=== PATIENT | male | born 1970 | race Caucasian/White ===

== ENCOUNTER 2016-09-02 02:12 | Inpatient (IN) | payer OTHER ==
[~2016-09-02] VITALS: Ht 165.1 cm; Wt 98.4 kg
[~2016-09-02 02:12] MED LIST: HUMALOG100 UNIT/2; LIPITOR20 M2 PO; NEXIUM40 M1 PO; TOPROL XL100 M1 PO; TOUJEO SOL300 UNIT/1 SC; TRIBENZOR 40-11 EAC1 PO; ZYRTEC10 M3 PO
--- NOTE | 2016-09-02 13:05 | Admission Core Measures ---
Admission Meds I reviewed the following Meds: Current Medications Sig/Nannette Start time Last Medication Dose Stop Time Status Admin Cefazolin Sodium 2,000 MG ONCE 09/02 0000 NR (Kefzol-Ancef Inj) 09/02 2358 Heparin Sodium 5,000 UNIT ONCE 09/02 0000 NR (Porcine) 09/02 2358 Acute Coronary Syndrome Inclusion Criteria ACS Diagnosis No Inpatient Core Measures LDL Reminder: If No, please order W/I first 24hr of stay Congestive Heart Failure Inclusion Criteria CHF Diagnosis No Cerebrovascular accident Inclusion Criteria CVA/TIA Diagnosis No Inpatient Core Measures Bedside Swallow Eval Reminder: If BSE failed, place ST order Antithrombotic Reminder: Order Antithrombotic Medication by end of day 2 Antithrombotic Reminder: Document Reason Antithrombotic Not ordered by end of day 2 AFIB/Flutter Reminder: If Present, add to problem list AFIB/Flutter Reminder: Order Anticoag Medication for pts with AFIB/Flutter Atherosclerosis Reminder: If Present, add to problem list LDL Reminder: If No, please order W/I first 24hr of stay PT Order Reminder: If No, please order Venous thromboembolism Inpatient Core Measures VTE Risk Factors: Age > 40, Obesity, Surgery No [facility] VTE prophylaxis d/t No contraindications No VTE Pharm Prophylaxis d/t No contraindications Inclusion Criteria - Per Current guidelines, there needs to be overlap - treatment for the first 5 days of Warfarin therapy. - Parenteral Anticoagulation (IV or SC) needs to be - given along with Warfarin therapy. VTE Diagnosis No VTE Type NONE VTE Confirmed by (Test) NONE Problem List As ranked by this Provider includes Assessment & Plan 1. S/P gastric bypass HOME MEDS Home Med List Atorvastatin Calcium (Lipitor) 20 MG TABLET 1 TAB PO DAILY CHOLESTEROL ( Reported) Cetirizine HCl (Zyrtec) 10 MG TABLET 1 TAB PO DAILY ALLERGIES (Reported) Esomeprazole (Nexium) 40 MG CAPSULE.DR 1 CAP PO DAILY GERD (Reported) Insulin Glargine,Hum.rec.anlog (Toujeo Solostar) 300 UNIT/ML (1.5 ML) INSULN.PEN 80 UNITS SC NIGHTLY DM I (Reported) Metoprolol Succ XL (Toprol XL) 100 MG TAB.ER.24H 1 TAB PO DAILY HTN (Reported ) Olmesartan/Amlodipin/Hcthiazid (Tribenzor 40-10-25 MG Tablet) 40 MG-10 MG-25 MG TABLET 1 TAB PO DAILY HTN (Reported)
--- NOTE | 2016-09-02 13:14 | Operative Report ---
Operative/Inv Procedure Report Surgery Date: 09/02/16 Name of Procedure: Laparoscopic Gastric Bypass, Laparoscopic partial gastrectomy, Laparoscopic Cholecystectomy, Upper endoscopy Pre-Operative Diagnosis: Morbid Obesity BMI, 39, HTN, NAVI, DM, GERD, Cholelithiasis Post-Operative Diagnosis: Morbid Obesity BMI 39, HTN, NAVI, DM, GERD, Cholelithiasis, gastric mass Estimated Blood Loss: less than 50ml Surgeon/Crystal Flat Grinder: NARCISO ELIZABETH DO Anesthesia: general endotracheal tube IV Fluids: 2500 cc Drains: 10 Fr RUQ TOBIAS Drain Specimens: Wedge resection of stomach, gallbladder Complications: None Condition: Stable Operative Indication: This is a 45-year-old male that presented to the office for workup for bariatric surgery. After appropriate workup was completed we discussed with the patient the band, the sleeve, and the gastric bypass. The patient chose to undergo a gastric bypass. All risks including but not limited to bleeding, infection, leak, stricture, marginal ulcer, injury to surrounding bowel/esophagus/stomach/ liver/spleen, malabsorption/malnutrition, dumping syndrome, internal hernia/ small bowel obstruction, DVT/PE, and mortality of 05/999 patients were discussed in detail. Patient was also found to have gallstones on his preoperative ultrasound and chose to undergo a laparoscopic cholecystectomy at the time of the gastric bypass. All risks of bleeding, infection, bile leak, and injury to surrounding duct/bowel were discussed in detail. The patient understood everything mentioned above and decided to proceed. Operative/Procedure Note Note: The patient was brought to the operating room and placed on the table in supine position. Venodyne stockings were placed and adequate general endotracheal anesthesia was obtained. The patient was prepped and draped in standard surgical fashion. Began the procedure by making a 2 cm transverse incision supraumbilically and slightly to the left of the midline. Then using a 12 mm clear Visiport and a 10 mm 0 laparoscope the abdominal cavity was accessed. Great care was taken to go through the anterior rectus sheath, the posterior rectus sheath, and through the peritoneum. Once we entered the peritoneum the abdominal cavity was insufflated to 15 mmHg. Upon initial examination no obvious gross pathology was seen, a distended gallbladder was noted in the right upper quadrant. Accessory trocars were placed, 5 mm in the epigastrium for the Marium liver retractor. The liver retractor was inserted and the liver was retracted anteriorly exposing the hiatus, no obvious hiatal hernia was seen. 5 mm ports were placed in the right and left upper quadrant, 5 mm left lateral port, and a 12 mm right lateral port. Began the procedure by mobilizing the angle of His and the left navarro of the diaphragm. The stomach was retracted towards the feet and the peritoneum was lysed until the left navarro was clearly visualized. We then brought our attention to the lesser curvature, and at the second vessel I began accessing the retrogastric space. Was done using Harmonic scalpel maintaining hemostasis. Once the retrogastric space was accessed we began creating our pouch using 60 mm purple staple load 4. The pouch was created around an Ashtyn tube. Once the pouch was completely disconnected from the gastric remnant we examined the staple lines, some bleeding was noted and that was controlled using endoclips. A less than 1 cm mass was noted on the anterior surface of the gastric fundus of the gastric remnant. Using 60 mm purple KIRT staple loads a wedge resection was performed to excise this mass. Once the mass was excised it was removed from the abdominal cavity and handed off the field. We then brought our attention to the small bowel, the omentum was retracted above the transverse colon and the ligament of Treitz was identified. The small bowel was run 50 cm and divided using 60 mm buchanan staple load. 2 clips were placed on the proximal staple line which was the biliopancreatic limb. That limb was run to the ligament of Treitz to assure that that was the blind limb. Following this the omentum was divided using Harmonic scalpel. After the omentum was divided the small bowel was coming up to the gastric pouch with no tension. At that point an enterotomy was made 5 cm from the prior divided distal staple line, fdc between the mesenteric and antimesenteric part. A gastrotomy was made pasterior to the staple line. A side to side gastrojejunostomy was created using 45 mm purple staple load approximately 3-3-1/2 cm in diameter. The Ashtyn tube was passed through the common enterotomy, and the common enterotomy was closed using 2-0 Vicryl suture in a running fashion double layer. Following this the small bowel was clamped off distal to the anastomosis, and we preformed an air and a methylene blue leak test. No obvious leak was noted. All the methylene blue was suctioned out. The small bowel was then run 100 cm and an enterotomy was made on the antimesenteric side. Another enterotomy was made on the antimesenteric side of the biliopancreatic limb. A side to side functional end end jejunojejunostomy was created using 60 mm buchanan staple load. The common enterotomy was closed using a 60 mm buchanan staple load followed by a 45 mm buchanan staple load. Some bleeding was noted from the staple line and that was controlled using endoclips as well. The mesenteric defect was closed using 2-0 Tycron suture in a running fashion. At that point we examined both anastomoses no obvious bleeding was noted and both appeared intact. 2-0 Vicryl suture was placed at the distal angle of the gastrojejunostomy to take some tension off the anastomosis. And a 2-0 Vicryl suture was placed on the anterior surface of the gastrojejunostomy imbricating the staple line. At that point an upper endoscopy was performed to assure patency of the anastomosis and make sure no obvious bleeding was noted as the patient was very oozy throughout the case. An endoscope was passed through the mouth down into the posterior pharynx and into the esophagus. The esophagus was entered under direct visualization and passed all the way down to the gastric pouch. The anastomosis and the pouch were examined no obvious bleeding was noted and the anastomosis appeared widely patent. At that point the endoscope was removed under direct visualization desufflating on the way out. A 5 mm port was placed in the right lateral position. The gallbladder was grasped with the lateralmost trocar and retracted up over the liver. Using the other 2 accessory trocars the infundibulum was grasped and the peritoneum was lysed using blunt dissection and using hook electrocautery. The cystic duct and cystic artery were visualized. The common bile duct was visualized and it was away from our area of dissection. The cystic duct and artery were skeletonized and divided, 3 clips to stay and one clip on the gallbladder side for the duct and the artery was divided using harmonic scalpel. The gallbladder was dissected off the liver bed using harmonic scalpel maintaining hemostasis. Prior to completely removing the gallbladder off the liver bed we examined the area of dissection no obvious bile leak or bleeding was noted, the clips appeared to be in good position. The gallbladder was completely detached from the liver bed. 10 mm Endobag was introduced through the periumbilical trocar site. The gallbladder was placed in the bag and removed through the umbilicus. The abdomen was reinsufflated. No obvious bile leak or bleeding was noted. The right upper quadrant was irrigated until clear. A 10 Malay TOBIAS drain was placed through the right upper quadrant incision under the liver and over the spleen. All ports were removed under direct visualization, no obvious bleeding was noted. Skin was closed using 4-0 Monocryl. Steri-Strips and dressings were placed. The patient was successfully extubated and transferred to the recovery room in stable condition. The patient tolerated the procedure well with no complications. Findings: no hiatal hernia, 100 cm alimentary limb, cholelithiasis, <1cm gastric mass on anterior portion of fundus CC: LINDSAY NICHOLSON DO
[2016-09-02 15:00] VITALS: BP 140/78
--- NOTE | 2016-09-02 15:38 | PN- Bariatrics ---
Subjective Subjective: The patient was seen this afternoon postoperatively. He complains of some expected epigastric discomfort for which the current pain regiment is helpful. He also complains of a dry sore throat. He has no other complaints the current time and denies any chest pain, difficulty breathing, or nausea. Objective Vital Signs and I&Os Vital signs: Blood pressure 140/70, pulse 90, temperature 97.3, O2 saturations 95% on 2 L via nasal cannula I's and O's: 2500 ML's of lactated Ringer's/patient is due to void/TOBIAS 150 ML/EBL 100 Physical Exam: Gen.: Alert and in no obvious distress Skin: Warm and dry Cardiac: S1 and S2 regular Pulmonary: Bilateral breath sounds are equal and decreased at bases Abdomen: Soft, obese, appropriate incisional tenderness, bowel sounds sluggish. Port sites are clean, dry, and intact. His TOBIAS 10 point on suction with serosanguineous drainage in the bulb. Extremities: Bilateral lower extremities warm without calf tenderness or significant edema. Assessment/Plan Assessment/Plan Assessment: 45-year-old male status post laparoscopic gastric bypass, cholecystectomy, and partial gastrectomy. Postoperatively the patient is progressing as expected and his pain is under adequate control. Plan: Keep nothing by mouth for an upper GI series in the morning IV hydration PRN pain medications and antiemetics. Out of bed and ambulate Total respiratory care for incentive spirometry and CPAP GI and DVT prophylaxis Follow-up morning laboratory studies Lovenox education Tight glycemic control and insulin sliding scale Changed home beta brigitte extended release to twice a day dosing with non- extended release 2 doses of postoperative prophylactic antibiotics Core Measures/Miscellaneous Venous Thromboembolism VTE Risk Factors: Age > 40, Obesity, Surgery VTE Contraindications: No Contraindications VTE Diagnosis: No VTE Type: NONE VTE Confirmed by (Test): NONE Beta Brigitte Is Beta Brigitte a Home Med? Yes If Yes, Was This Ordered Today? Yes Antibiotics Is Patient on Antibiotics? Yes If Yes: prophylaxis
[2016-09-02 16:04] VITALS: BP 100/72
[2016-09-02] MEDS ORDERED: LOPRESSOR50 M1 PO (16:44)
[2016-09-02] MEDS ORDERED: HYCET 7.5 MG-3473 ML PO (16:45)
[2016-09-02] MEDS ORDERED: LOVENOX40 MG/0.1 SC (16:46)
--- NOTE | 2016-09-02 16:52 | Patient Discharge Instructions ---
Discharge Instructions General Discharge Information You were seen/treated for: Morbid obesity You had these procedures: Laparoscopic gastric bypass, cholecystectomy, and partial gastrectomy Watch for these problems: Significantly increased pain, nausea, temperature over 101 Increased redness or draining from around incisions Chest pain, difficulty breathing or lower leg pain No bath, but you may shower: Yes Other wound care: Remove dressings when he gets home leaving white strips intact until seen by your surgeon Special Instructions: See preprinted information booklet Ambulate frequently May use Gas-X for gas pain Diet Recommended Diet: Bariatric Activity Activity Self Limited: Yes Pounds, do NOT lift more than: 10 Acute Coronary Syndrome Inclusion Criteria At DC or during hospital stay patient has or had the following: ACS DIAGNOSIS No Discharge Core Measures Meds if any: Prescribed or Continued at Discharge Meds if any: NOT Prescribed or Continued at Discharge Congestive Heart Failure Inclusion Criteria At DC or during hospital stay patient has or had the following: CHF DIAGNOSIS No Discharge Core Measures Meds if any: Prescribed or Continued at Discharge Meds if any: NOT Prescribed or Continued at Discharge Cerebrovascular accident Inclusion Criteria At DC or during hospital stay patient has or had the following: CVA/TIA Diagnosis No Discharge Core Measures Meds if any: Prescribed or Continued at Discharge Meds if any: NOT Prescribed or Continued at Discharge Venous thromboembolism Inclusion Criteria VTE Diagnosis No VTE Type NONE VTE Confirmed by (Test) NONE Discharge Core Measures - Per Current guidelines, there needs to be overlap - treatment for the first 5 days of Warfarin therapy. - If discharged on Warfarin prior to 5 days of - overlap therapy, the patient will need to be - assessed for post discharge needs including - *Post discharge parental anticoagulation - *Warfarin and/or parental anticoagulation education - *Follow up date to check INR post discharge At least 5 days overlap therapy as Inpatient No Meds if any: Prescribed or Continued at Discharge Note: Overlap Therapy is Warfarin and Anticoagulant Meds if any: NOT Prescribed or Continued at Discharge
--- NOTE | 2016-09-02 16:55 | Surg Short-stay <48hrs Dis Sum ---
Visit Information Visit Dates Admission Date: 09/02/16 Discharge Date: 09/04/16 Surgical Short Stay DC Summary Admission Diagnosis: Morbid obesity hx iddm, htn, gerd, geetha Final Diagnosis: Same Procedure(s): Laparoscopic gastric bypass, cholecystectomy, partial gastrectomy with intraoperative endoscopy Summary/Significant Findings: The patient was admitted on 09/02/2016. He is brought to the operating theater where he underwent the above procedure. His upper gi study was negative on post -op day#1. Postoperatively the patient progressed as expected, his pain is under adequate control, and he tolerated a stage I diet without nausea. His beta daquan was divided, and continued post-op. He was seen by for evaluation and recommendations of his insulin control for diabetes. The patient was discharged with an uneventful hospital course. Condition at Discharge: Stable Discharge Disposition: home or self care Discharge instructions provided to patient/family: Yes Post discharge follow-up plan: Call the office to be seen in one week endocrine follow-up as instructed
[2016-09-02 17:32] VITALS: BP 136/82
[2016-09-02 20:05] VITALS: BP 110/70
[2016-09-02 23:12] VITALS: BP 118/64
[2016-09-03 06:39] VITALS: BP 118/80
--- NOTE | 2016-09-03 07:13 | PN- Bariatrics ---
Subjective Subjective: The patient was seen this morning postoperatively day #1. He reports some expected epigastric discomfort but is otherwise okay. He denies any nausea, chest pain, or difficulty breathing. He is ambulating frequently and has no other complaints the current time Objective Vital Signs and I&Os Vital Signs Date Time Temp Pulse Resp B/P B/P Pulse O2 O2 Flow FiO2 Mean Ox Delivery Rate 09/03 0639 98.3 88 20 118/80 94 Room Air 09/03 0000 CPAP 09/02 2312 97.9 86 20 118/64 92 Room Air 09/02 2200 96 Nasal 2.0L Cannula 09/02 2004 98.0 93 20 110/70 96 Nasal 2.0L Cannula 09/03 1999 96 Nasal 2.0L Cannula 09/02 1854 Nasal 2.0L Cannula 09/02 1732 98.3 96 20 136/82 96 Nasal 2.0L Cannula 09/02 1604 97.6 67 19 100/72 93 09/02 1600 97 Nasal 3.0L Cannula 09/02 1600 97 Nasal 3.0L Cannula 09/02 1500 97 Nasal 3.0L Cannula 09/02 1500 98.0 69 18 140/78 95 Nasal 3.0L Cannula Intake & Output 09/03 0800 09/03 0000 09/02 1600 09/02 0800 09/02 0000 09/01 1600 Intake Total 250 Output Total 158 Balance 92 Intake, IV 250 Output, 33 Drainage Output, Urine 125 Patient 217 lb Weight Weight Reported by Patient Measurement Method Physical Exam: Gen.: Alert and in no obvious distress Skin: Warm and dry Abdomen: Soft, obese, appropriate incisional tenderness, bowel sounds positive. Port sites are slightly bloody but otherwise intact. There is a TOBIAS 1 holding suction with serosanguineous drainage in the bulb. Extremities: Bilateral lower extremitys are warm without calf tenderness or significant edema. Assessment/Plan Assessment/Plan Assessment: 45-year-old male status post laparoscopic gastric bypass, cholecystectomy, and partial gastrectomy postoperative day #1. The patient is progressing as expected, his pain is under adequate control, and he is without nausea. Plan: Keep nothing by mouth for upper GI series this morning. His upper GI series is okay the patient be started on a bariatric stage I diet Out of bed and ambulate Follow-up morning laboratory studies GI and DVT prophylaxis Decrease IV fluids Continue current pain regiment Lovenox education Keep TOBIAS to self suction Core Measures/Miscellaneous Venous Thromboembolism VTE Risk Factors: Age > 40, Obesity, Surgery VTE Contraindications: No Contraindications VTE Diagnosis: No VTE Type: NONE VTE Confirmed by (Test): NONE Beta Brigitte Is Beta Brigitte a Home Med? Yes If Yes, Was This Ordered Today? Yes Antibiotics Is Patient on Antibiotics? No
[2016-09-03 08:47] LABS: ABSOLUTE BASOPHIL COUNT 0 /CUMM (0.0-0.2); ABSOLUTE EOSINOPHIL COUNT 0 /CUMM (0.0-0.7); ABSOLUTE GRANULOCYTE CT 10.2 /CUMM (1.4-6.5); ABSOLUTE LYMPH COUNT 1.1 /CUMM (1.2-3.4); ABSOLUTE MONOCYTE COUNT 0.9 /CUMM (0.10-0.60); BASOPHIL % 0.1 % (0.0-2.0); EOSINOPHIL % 0.1 % (0-5); HEMATOCRIT 38.5 % (42-52); MEAN CORPUSCULAR HGB CONC 34.2 G/DL (33.0-37.0); MEAN CORPUSCULAR VOLUME 87.8 FL (80.0-94.0); MEAN PLATELET VOLUME 7.3 FL (7.4-10.4); PLATELET COUNT 258 /CUMM (130-400); RBC DISTRIBUTION WIDTH 13.8 % (11.5-14.5); RED BLOOD CELL CT 4.39 /CUMM (4.70-6.10); WHITE BLOOD CELL COUNT 12.3 /CUMM (4.8-10.8)
[2016-09-03 10:03] LABS: GRANULOCYTE % 83.4 % (42.2-75.2)
--- NOTE | 2016-09-03 12:21 | Cons- Endocrinology ---
General Information and HPI Consulting Request Date of Consult: 09/03/16 Requested By: surgical team Reason for Consult: Elevated blood sugar post gastric bypass surgery Source of Information: patient, old records Exam Limitations: no limitations History of Present Illness: This 45-year-old male who is status post laparoscopic gastric bypass, cholecystectomy, and partial gastrectomy which was performed yesterday. In speaking with the patient he has a long-standing history of diabetes mellitus type 2. He was on large doses of insulin including Toujeo 80 units twice a day as well as 10-15 units of Humalog before each meal. Even with that his sugars were running high. He was not recently on a metformin or other medications Interestingly when the patient was on his preop diet and his blood sugar up down into the 140s even though he was taking no insulin at all. Patient states that he is doing well postoperatively. He had the upper GI series this morning to make sure there were no lesions and he has been started on his liquid diet she's bariatric stage I. He is still on some IV fluids with D5 half-normal saline. His most recent blood sugar was 164 though yesterday his sugars are in the mid 200s by fingerstick. He is on low-dose regular insulin coverage every 6 hours. Allergies/Medications Allergies: Coded Allergies: shellfish derived (Severe, HIVES 08/25/16) Home Med List: Atorvastatin Calcium (Lipitor) 20 MG TABLET 1 TAB PO DAILY CHOLESTEROL ( Reported) Cetirizine HCl (Zyrtec) 10 MG TABLET 1 TAB PO DAILY ALLERGIES (Reported) Esomeprazole (Nexium) 40 MG CAPSULE.DR 1 CAP PO DAILY GERD (Reported) Insulin Glargine,Hum.rec.anlog (Toujeo Solostar) 300 UNIT/ML (1.5 ML) INSULN.PEN 80 UNITS SC NIGHTLY DM I (Reported) Insulin Lispro (Humalog) 100 UNIT/ML VIAL DM I (Reported) SLIDING SCALE Metoprolol Succ XL (Toprol XL) 100 MG TAB.ER.24H 1 TAB PO DAILY HTN (Reported ) Olmesartan/Amlodipin/Hcthiazid (Tribenzor 40-10-25 MG Tablet) 40 MG-10 MG-25 MG TABLET 1 TAB PO DAILY HTN (Reported) Current Medications: Current Medications Sig/Nannette Start time Last Medication Dose Route Stop Time Status Admin Acetaminophen/ 15 ML Q6P PRN 09/02 1530 AC 09/03 Hydrocodone Bitart PO 0628 Cefazolin Sodium 1,000 MG Q8 09/02 2200 DC 09/03 IV 09/03 0601 0607 Cefazolin Sodium 1,000 MG IQ8 09/02 1600 DC IV 09/03 0001 Cefazolin Sodium 2,000 MG ONCE 09/02 0000 DC IV 09/02 2359 Diphenhydramine HCl 50 MG .STK-MED ONE 09/02 1429 DC IM 09/02 1430 Enoxaparin Sodium 40 MG 0600 09/02 1530 AC 09/03 SC 0609 Heparin Sodium 5,000 UNIT Q8 09/02 2200 DC 09/02 (Porcine) SC 09/02 220 2227 Heparin Sodium 5,000 UNIT ONCE 09/02 0000 DC (Porcine) SC 09/02 2359 Hydromorphone HCl 1 MG Q4P PRN 09/02 1530 AC 09/03 IV 0846 Insulin Aspart 0 Q6 09/02 1800 AC 09/03 SC 1140 Lidocaine/Prilocaine 1 GM ONCE ONE 09/02 1800 DC 09/02 TOP 09/02 1801 1924 Meperidine HCl 50 MG .STK-MED ONE 09/02 1307 DC IM 09/02 1308 Metoprolol Tartrate 50 MG BID 09/02 2200 09/03 PO 0846 Morphine Sulfate 10 MG .STK-MED ONE 09/02 1403 DC IM 09/02 1404 Ondansetron HCl 4 MG Q6P PRN 09/02 1530 AC IV Pantoprazole Sodium 40 MG 09/02 2200 AC 09/02 IV 2226 Pantoprazole Sodium 40 MG DAILY 09/02 1313 DC IV Potassium Chloride 20 MEQ Q8H 09/02 1545 AC 09/03 Dextrose/Sodium 1,000 ML IV 0050 Chloride Potassium Chloride 20 MEQ .Q8H 09/02 1530 DC 09/02 Dextrose/Sodium 1,000 ML IV 1535 Chloride Simethicone 40 MG Q6P PRN 09/02 1530 AC PO Current Medications Sig/Nannette Start time Last Medication Dose Route Stop Time Status Admin Acetaminophen/ 15 ML Q6P PRN 09/02 1530 AC 09/03 Hydrocodone Bitart PO 0628 Cefazolin Sodium 1,000 MG Q8 09/02 2200 DC 09/03 IV 09/03 0601 0607 Cefazolin Sodium 1,000 MG IQ8 09/02 1600 DC IV 09/03 0001 Cefazolin Sodium 2,000 MG ONCE 09/02 0000 DC IV 09/02 2359 Diphenhydramine HCl 50 MG .STK-MED ONE 09/02 1429 DC IM 09/02 1430 Enoxaparin Sodium 40 MG 0600 09/02 1530 AC 09/03 SC 0609 Heparin Sodium 5,000 UNIT Q8 09/02 2200 DC 09/02 (Porcine) SC 09/02 2201 2227 Heparin Sodium 5,000 UNIT ONCE 09/02 0000 DC (Porcine) SC 09/02 2359 Hydromorphone HCl 1 MG Q4P PRN 09/02 1530 AC 09/03 IV 0846 Insulin Aspart 0 Q6 09/02 1800 AC 09/03 SC 1140 Lidocaine/Prilocaine 1 GM ONCE ONE 09/02 1800 DC 09/02 TOP 09/02 1801 1924 Meperidine HCl 50 MG .STK-MED ONE 09/02 1307 DC IM 09/02 1308 Metoprolol Tartrate 50 MG BID 09/02 2200 AC 09/03 PO 0846 Morphine Sulfate 10 MG .STK-MED ONE 09/02 1403 DC IM 09/02 1404 Ondansetron HCl 4 MG Q6P PRN 09/02 1530 AC IV Pantoprazole Sodium 40 MG 2200 09/02 2200 AC 09/02 IV 2226 Pantoprazole Sodium 40 MG DAILY 09/02 1313 DC IV Potassium Chloride 20 MEQ Q8H 09/02 1545 AC 09/03 Dextrose/Sodium 1,000 [place] IV 0050 Chloride Potassium Chloride 20 MEQ .Q8H 09/02 1530 DC 09/02 Dextrose/Sodium 1,000 ML IV 1535 Chloride Simethicone 40 MG Q6P PRN 09/02 1530 AC PO Past History Medical History Blood Transfusion Hx: No Neurological: NONE EENT: hearing loss, (NOT PROFOUND) Cardiovascular: NONE, hypertension, hyperlipidemia Respiratory: obstructive sleep apnea Gastrointestinal: NONE, GERD, HEMERRHOIDS Hepatic: cholelithiasis Renal: NONE Musculoskeletal: NONE Psychiatric: NONE Endocrine: diabetes, obesity Blood Disorders: NONE Cancer(s): NONE Surgical History Surgical History: BILAT KNEE, RT FOOT PINS Psychosocial History Where Do You Live? Home Smoking Status: Current Some Day Smoker Exam & Diagnostic Data Last 24 Hrs of Vital Signs/I&O Vital Signs Date Time Temp Pulse Resp B/P B/P Pulse O2 O2 Flow FiO2 Mean Ox Delivery Rate 09/03 0846 72 118/70 09/03 0800 95 Room Air 09/03 0639 98.3 88 20 118/80 94 Room Air 09/03 0400 94 CPAP 09/03 0000 CPAP 09/03 0000 96 Nasal 2.0L Cannula 09/02 2312 97.9 86 20 118/64 92 Room Air 09/02 2200 96 Nasal 2.0L Cannula 09/02 2004 98.0 93 20 110/70 96 Nasal 2.0L Cannula 09/03 1999 96 Nasal 2.0L Cannula 09/02 1853 Nasal 2.0L Cannula 09/03 1731 98.3 96 20 136/82 96 Nasal 2.0L Cannula 09/02 160 97.6 67 19 100/72 93 09/02 1600 97 Nasal 3.0L Cannula 09/02 1600 97 Nasal 3.0L Cannula 09/02 1500 97 Nasal 3.0L Cannula 09/02 1500 98.0 69 18 140/78 95 Nasal 3.0L Cannula Intake & Output 09/03 1600 09/03 0800 09/03 0000 Intake Total 1100 250 Output Total 480 158 Balance 620 92 Intake, IV 1100 250 Output, 80 33 Drainage Output, Urine 400 125 Vital Signs Date Time Temp Pulse Resp B/P B/P Pulse O2 O2 Flow FiO2 Mean Ox Delivery Rate 09/03 0846 72 118/70 09/03 0800 95 Room Air 09/03 0639 98.3 88 20 118/80 94 Room Air 09/03 0400 94 CPAP 09/03 0000 CPAP 09/03 0000 96 Nasal 2.0L Cannula 09/02 2312 97.9 86 20 118/64 92 Room Air 09/02 2200 96 Nasal 2.0L Cannula 09/02 2004 98.0 93 20 110/70 96 Nasal 2.0L Cannula 09/03 1999 96 Nasal 2.0L Cannula 09/02 1853 Nasal 2.0L Cannula 09/02 173 98.3 96 20 136/82 96 Nasal 2.0L Cannula 09/02 1604 97.6 67 19 100/72 93 09/02 1600 97 Nasal 3.0L Cannula 09/02 1600 97 Nasal 3.0L Cannula 09/02 1500 97 Nasal 3.0L Cannula 09/02 1500 98.0 69 18 140/78 95 Nasal 3.0L Cannula Intake & Output 09/03 1600 09/03 0800 09/03 0000 Intake Total 1100 250 Output Total 480 158 Balance 620 92 Intake, IV 1100 250 Output, 80 33 Drainage Output, Urine 400 125 Physical Exam General Appearance: alert, awake, comfortable Head: normal appearance Neck: normal inspection Respiratory: normal breath sounds Cardiovascular: regular rate/rhythm Gastrointestinal: distention Extremities: normal inspection Skin: drain right abdomen Labs/Stephen Results: Laboratory Tests 09/03 0627 Chemistry Sodium (137 - 145 mmol/L) 139 Potassium (3.5 - 5.1 mmol/L) 4.3 Chloride (98 - 107 mmol/L) 102 Carbon Dioxide (22 - 30 mmol/L) 25 Anion Gap (5 - 16) 12 BUN (9 - 20 mg/dL) 20 Creatinine (0.7 - 1.2 mg/dL) 1.3 H Estimated GFR (>60 ml/min) 60 BUN/Creatinine Ratio (7 - 25 %) 15.4 Hematology CBC w Diff NO MAN DIFF REQ WBC (4.8 - 10.8 /CUMM) 12.3 H RBC (4.70 - 6.10 /CUMM) 4.39 L Hgb (14.0 - 18.0 G/DL) 13.2 L Hct (42 - 52 %) 38.5 L MCV (80.0 - 94.0 FL) 87.8 MCH (27.0 - 31.0 PG) 30.0 RDW (11.5 - 14.5 %) 13.8 Plt Count (130 - 400 /CUMM) 258 MPV (7.4 - 10.4 FL) 7.3 L Gran % (42.2 - 75.2 %) 83.4 H Lymphocytes % (20.5 - 51.1 %) 9.4 L Monocytes % (1.7 - 9.3 %) 7.0 Eosinophils % (0 - 5 %) 0.1 Basophils % (0.0 - 2.0 %) 0.1 Absolute Granulocytes (1.4 - 6.5 /CUMM) 10.2 H Absolute Lymphocytes (1.2 - 3.4 /CUMM) 1.1 L Absolute Monocytes (0.10 - 0.60 /CUMM) 0.9 H Absolute Eosinophils (0.0 - 0.7 /CUMM) 0 Absolute Basophils (0.0 - 0.2 /CUMM) 0 PUBS MCHC (33.0 - 37.0 G/DL) 34.2 Assessment/Plan Assessment/Plan This 45-year-old male is doing well status post laparoscopic gastric bypass, cholecystectomy, and partial hysterectomy. His IV fluids are being tapered and he is just started a by mouth diet. His blood sugar seems to be coming down with his last fingerstick sugar of 164. Suggest that when the patient's IV fluids stopped that we can also stop his regular insulin coverage. We can simply monitor his sugars at that time. If they are in the 150-160 range and then he could be sent home on no insulin at all. He can be followed in the office after discharge by Dr. jeronimo who is his usual endocrinology doctor. Consult Acknowledgment - Thank you for your consult request.
--- NOTE | 2016-09-03 12:41 | RADIOLOGY REPORT ---
EXAM: Upper GI examination under fluoroscopy. INDICATION: Postoperative gastric bypass. TECHNIQUE: Single contrast examination of the esophagus, proximal stomach, and small bowel was performed under fluoroscopic imaging, after the administration of oral Gastrografin. Hot Mill Supervisor radiograph and multiple fluoroscopic spot images were performed. FINDINGS: Initial development mechanic image demonstrates surgical anastomotic material in the epigastric area and a percutaneous surgical drain in the left upper quadrant. Passage of contrast from the esophagus into the stomach was visualized with no evidence of leak or obstruction. Contrast quickly empties into the small bowel. The small bowel is not dilated and there is no evidence for a distal anastomotic obstruction. IMPRESSION: Expected postoperative appearance of a gastric bypass without evidence of leak or obstruction.
[2016-09-03 14:23] VITALS: BP 116/80
[2016-09-03 21:00] VITALS: BP 122/78
[2016-09-04 06:22] VITALS: BP 142/80
--- NOTE | 2016-09-04 07:30 | PN- Bariatrics ---
Subjective Subjective: Reports pain controlled. Improved gas pains. Passing flatus and +bm. Tolerating stage 1 diet. No nausea. Ambulating without difficulty. No dizziness. No shortness of breath. Voiding well. Comfortable with lovenox injections. Objective Vital Signs and I&Os Vital Signs Date Time Temp Pulse Resp B/P B/P Pulse O2 O2 Flow FiO2 Mean Ox Delivery Rate 09/04 0622 99.5 95 22 142/80 94 Room Air 09/03 2200 93 Room Air 09/03 2108 98.6 103 16 122/78 09/03 2100 98.6 103 16 122/78 93 Room Air 09/03 1423 99.1 80 20 116/80 95 Room Air 09/03 1400 95 Room Air 09/03 0846 72 118/70 09/03 0800 95 Room Air Intake & Output 09/04 0800 09/04 0000 09/03 1600 09/03 0800 09/03 0000 09/02 1600 Intake Total 253 270 5022 250 Output Total 450 600 805 480 158 Balance -450 -360 35 620 92 Intake, IV 600 1100 250 Intake, Oral 240 240 Number 0 Bowel Movements Output, 30 80 33 Drainage Output, Urine 450 600 775 400 125 Patient 217 lb Weight Weight Reported by Patient Measurement Method Physical Exam: General - alert & oriented x 3. comfortable. no acute distress. Lungs - clear bilaterally. no w/r/r. Cardiac - s1s2. reg. Abdomen - soft. dressings c/d/i. expected juan-incisional tenderness. TOBIAS drain with serosang drainage. Extremities - warm bilaterally. no c/c/e. calves soft and nontender b/l. Current Medications: Current Medications Sig/Nannette Start time Last Medication Dose Route Stop Time Status Admin Acetaminophen/ 15 ML Q6P PRN 09/02 1530 AC 09/04 Hydrocodone Bitart PO 0616 Enoxaparin Sodium 40 MG 0609/02 1530 09/04 SC 0617 Hydromorphone HCl 1 MG Q4P PRN 09/02 153 09/04 IV 0007 Insulin Aspart 0 Q6 09/02 1800 09/04 SC 0616 Metoprolol Tartrate 50 MG BID 09/02 PO 2108 Ondansetron HCl 4 MG Q6P PRN 09/02 153 IV Pantoprazole Sodium 40 MG 09/02 IV 2107 Potassium Chloride 20 MEQ Q8H 09/02 1545 AC 09/04 Dextrose/Sodium 1,000 ML IV 0008 Chloride Simethicone 40 MG Q6P PRN 09/02 1530 AC 09/04 PO 0614 Results Last 48 Hours of Labs: Laboratory Tests 09/03 626 Chemistry Sodium (137 - 145 mmol/L) 139 Potassium (3.5 - 5.1 mmol/L) 4.3 Chloride (98 - 107 mmol/L) 102 Carbon Dioxide (22 - 30 mmol/L) 25 Anion Gap (5 - 16) 12 BUN (9 - 20 mg/dL) 20 Creatinine (0.7 - 1.2 mg/dL) 1.3 H Estimated GFR (>60 ml/min) 60 BUN/Creatinine Ratio (7 - 25 %) 15.4 Hematology CBC w Diff NO MAN DIFF REQ WBC (4.8 - 10.8 /CUMM) 12.3 H RBC (4.70 - 6.10 /CUMM) 4.39 L Hgb (14.0 - 18.0 G/DL) 13.2 L Hct (42 - 52 %) 38.5 L MCV (80.0 - 94.0 FL) 87.8 MCH (27.0 - 31.0 PG) 30.0 RDW (11.5 - 14.5 %) 13.8 Plt Count (130 - 400 /CUMM) 258 MPV (7.4 - 10.4 FL) 7.3 L Gran % (42.2 - 75.2 %) 83.4 H Lymphocytes % (20.5 - 51.1 %) 9.4 L Monocytes % (1.7 - 9.3 %) 7.0 Eosinophils % (0 - 5 %) 0.1 Basophils % (0.0 - 2.0 %) 0.1 Absolute Granulocytes (1.4 - 6.5 /CUMM) 10.2 H Absolute Lymphocytes (1.2 - 3.4 /CUMM) 1.1 L Absolute Monocytes (0.10 - 0.60 /CUMM) 0.9 H Absolute Eosinophils (0.0 - 0.7 /CUMM) 0 Absolute Basophils (0.0 - 0.2 /CUMM) 0 PUBS MCHC (33.0 - 37.0 G/DL) 34.2 Assessment/Plan Assessment/Plan This 45-year-old male with hx htn, iddm, gerd, geetha, is POD#2 s/p lap gastric bypass, cholecystectomy, and partial gastrectomy tolerating stage 1 diet d/c iv fluids pain controlled lovenox - dvt ppx protonix - gi ppx metoprolol bid TOBIAS drain removed f/u endocrine recommendations for discharge d/c home today d/w Core Measures/Miscellaneous Venous Thromboembolism VTE Risk Factors: Age > 40, Obesity, Surgery VTE Contraindications: No Contraindications VTE Diagnosis: No VTE Type: NONE VTE Confirmed by (Test): NONE Beta Brigitte Is Beta Brigitte a Home Med? Yes If Yes, Was This Ordered Today? Yes Antibiotics Is Patient on Antibiotics? No Is Patient on Antibiotics? No
[2016-09-04 08:31] VITALS: BP 142/70
--- NOTE | 2016-09-04 09:04 | PN- Diabetes ---
Assessment/Plan Assessment: Patient has a history of diabetes mellitus type 2 associated with obesity. The patient is status post gastric bypass surgery during this admission. Patient states he is tolerating his diet. He states he had a bowel movement times this morning and is passing his urine okay. Review of his blood sugars feel that they were 187 and 193. Plan: Suggest that the patient can go home on diet alone. He is going to be eating only small amounts. I asked him to call the office if his sugar comes over 200. Can help him adjust his diabetic regimen at that time. Subjective Subjective: Doing okay Review of Systems Constitutional: Denies: chills, fever. Cardiovascular: Denies: chest pain. Respiratory: Denies: cough, short of breath. Gastrointestinal: Reports: diarrhea, distention, nausea. Skin: Reports: no symptoms. Objective Last 24 Hrs of Vital Signs/I&O Vital Signs Date Time Temp Pulse Resp B/P B/P Pulse O2 O2 Flow FiO2 Mean Ox Delivery Rate 09/04 0831 80 142/70 09/04 0622 99.5 95 22 142/80 94 Room Air 09/04 0600 93 Room Air 09/03 2200 93 Room Air 09/03 2108 98.6 103 16 122/78 09/03 2100 98.6 103 16 122/78 93 Room Air 09/03 1423 99.1 80 20 116/80 95 Room Air 09/03 1400 95 Room Air Intake & Output 09/04 1600 09/04 0800 09/04 0000 Intake Total 720 240 Output Total 1005 600 Balance -285 -360 Intake, IV 600 Intake, Oral 120 240 Number 1 Bowel Movements Output, 155 Drainage Output, Urine 850 600 Physical Exam General Appearance: alert, awake, comfortable Head: normal appearance Neck: normal inspection Respiratory: normal breath sounds Cardiovascular: regular rate/rhythm Abdomen: distention Extremities: normal inspection Current Medications: Current Medications Sig/Nannette Start time Last Medication Dose Route Stop Time Status Admin Acetaminophen/ 15 ML Q6P PRN 09/02 1530 AC 09/04 Hydrocodone Bitart PO 0616 Enoxaparin Sodium 40 MG 0600 09/02 1530 AC 09/04 SC 0617 Hydromorphone HCl 1 MG Q4P PRN 09/02 1530 DC 09/04 IV 0007 Insulin Aspart 0 Q6 09/02 1800 AC 09/04 SC 0616 Metoprolol Tartrate 50 MG BID 09/02 2199 AC 09/04 PO 0831 Ondansetron HCl 4 MG Q6P PRN 09/02 1530 AC IV Pantoprazole Sodium 40 MG 09/02 AC 09/03 IV 2107 Potassium Chloride 20 MEQ Q8H 09/02 1545 DC 09/04 Dextrose/Sodium 1,000 ML IV 0008 Chloride Simethicone 40 MG Q6P PRN 09/02 1530 AC 09/04 PO 0614
== END 2016-09-04 12:01 | DRG 403 ==
LOC: 2NB 02:12 → SDA 02:12 → ENRESERV 13:43 → 2NB 15:00 → ENPENDDIS 09-04 07:33 → 2NB 09-04 12:01
PROVIDERS: Physician Assistant Surgical; ADMIT Surgery
PROC: 0D164ZA Bypass Stomach to Jejunum, Percutaneous Endoscopic Approach (ICD-10-PCS; principal; 2016-09-02)
PROC: 0FT44ZZ Resection of Gallbladder, Percutaneous Endoscopic Approach (ICD-10-PCS; principal; 2016-09-02)
PROC: 0DB64ZZ Excision of Stomach, Percutaneous Endoscopic Approach (ICD-10-PCS; principal; 2016-09-02)
DX: E66.01 Morbid (severe) obesity due to excess calories (principal); Z68.39 Body mass index [BMI] 39.0-39.9, adult; K21.9 Gastro-esophageal reflux disease without esophagitis; K80.20 Calculus of gallbladder without cholecystitis without obstruction; G47.33 Obstructive sleep apnea (adult) (pediatric); I10 Essential (primary) hypertension; E11.9 Type 2 diabetes mellitus without complications; Z79.4 Long term (current) use of insulin
CPT/HCPCS: 2NBP; 36415; 74240; 82436; 88304; 88307; J0131; J0690; J1170; J1200; J1644; J1650; J2405; J7042; S5012